=== PATIENT | male | born 1970 | race Caucasian/White ===

== ENCOUNTER 2017-08-19 06:14 | Emergency (ER) | payer SELFPAY ==
[~2017-08-19] VITALS: Ht 180.3 cm; Wt 67.8 kg
[~2017-08-19 06:14] MED LIST: ECOTRIN325 MG OR; LIPITOR20 MG OR; PLAVIX75 MG OR
[2017-08-19] MEDS ORDERED: ZPAK PO (06:36)
[2017-08-19] MEDS ORDERED: ROBITUSSIN200 MG/10 PO (06:36)
[2017-08-19 06:38] VITALS: BP 121/84
== END 2017-08-19 06:44 | disposition home or self-care (01) | DRG 153 ==
LOC: ED 06:14
DX: J06.9 Acute upper respiratory infection, unspecified (principal); F17.210 Nicotine dependence, cigarettes, uncomplicated; I25.10 Atherosclerotic heart disease of native coronary artery without angina pectoris; I25.2 Old myocardial infarction; E78.00 Pure hypercholesterolemia, unspecified; Z95.1 Presence of aortocoronary bypass graft; Z95.5 Presence of coronary angioplasty implant and graft